=== PATIENT | female | born 1985 ===

== ENCOUNTER 2023-09-06 11:18 | Outpatient (AMB) | payer OTHER, SELFPAY ==
[2023-09-06 11:44] VITALS: BMI 40.8
--- NOTE | 2023-09-06 11:44 | A.OFFVIS_ITS ---
VS Expanded 09/06/23 11:44 09/19/23 12:51 Height 5 ft 2 in 5 ft 2 in Weight 223 lb 1.725 oz 223 lb BMI 40.8 40.8 Intake Visit Reasons: MORBID OBESITY/CONFIRMED Nutrition Presentation Details: Pt presents for MNT for obesity. Pt was referred by PCP Elisabeth Haile [employer]PER[employer]/Dr. Lowe Pt reports having difficulties with meal planning and recently dx with vit d deficiency Typical meal intake B: skips or has granola bars , hydration beverage L: granola bars, water or hydration beverages D: varies sand/chips/fruit or fast food physical activity: daily life activities etoh/smoking----- past med hx of gestational diabetes BS Monitoring Most Recent Diabetes Results: No Data to Display [id number] Equation Height: 5 ft 2 in Weight: 223 lb Resting Metabolic Rate: 1646.79 Calculated Activity Level: Sedentary Calories Needed to Maintain Weight: 1976.15 Diagnosis Nutrition problem #1: food nutri know defi As related to (etiology) #1: diagnosis As evidenced by (sign/symptom) #1: knowledge deficit of diet Monitoring/Goals Nutrition problem monitoring: level of knowledge/skill, total CHO intake, weight and oral fluids Outcome progress: verbalized understanding Learning/Education Readiness to learn: good Assessment & Plan Assessment & Plan (1) Morbid obesity with BMI of 40.0-44.9, adult: Code(s): E66.01 - Morbid (severe) obesity due to excess calories; Z68.41 - Body mass index [BMI] 40.0-44.9, adult Category: Medical Plan: Wt: 101 Kg ( 09/26 ) Est kcal needs as per MSJ: 2000 (40% carb, 30% protein/fat) Est fluid needs as per 25-30 ml/d: 3000 Est prot per day as per 1 g/kg bw: 100 Recommend fiber intake : 8-10 g per day and gradually increase to 25-28 g per day for women and 35-38 g for men or as tolerated Recommend sodium intake per day : less than 1500 mg less than 2000 mg Educated patient on: ( R = reviewed V = verbalizes understanding N/R = needs review N/A = not applicable * Food sources of carbohydrate, adequate serving sizes and its role in various health conditions: R * Differences between complex carbohydrates a simple carbohydrates, role of fiber in diet: R * Lean protein sources of foods: R V NR * Differences between types of fats and role in diet (mono on saturated fat fatty acids, saturated fatty acids, trans fats): R V N/R * Food sources of sodium in salt and healthy modifications for heart health in kidney health: R V R/V * Vitamins and minerals: R V N/R * Healthy plate method concept: R * Physical activity: Benefits a precaution: R V N/R Plan Patient Instructions: Work on following healthy plate method, reducing total carbs to 60 g at meal , 3 meals/day and 0-20 g carbs 2-3 snacks per day Keep hydrated by having water with meals, snacks Coding Level of Care Code Nutr Indiv Intake (53171) Diagnoses Morbid obesity with BMI of 40.0-44.9, adult E66.01; Z68.41 Time Spent (min) 30
[2023-09-19 12:51] VITALS: BMI 40.8
== END 2023-09-06 12:18 | disposition home or self-care (01) ==
PROVIDERS: Visit Provider Dietitian, Registered
DX: E66.01 Morbid (severe) obesity due to excess calories (principal); Z68.41 Body mass index [BMI] 40.0-44.9, adult

== ENCOUNTER → 2023-09-06 11:18 | Outpatient (BNVA) | payer OTHER, SELFPAY | PROVIDERS: Visit Provider Dietitian, Registered | DX: E66.01 Morbid (severe) obesity due to excess calories (principal); Z71.3 Dietary counseling and surveillance; Z68.41 Body mass index [BMI] 40.0-44.9, adult | CPT/HCPCS: 97802 ==

== ENCOUNTER 2023-10-11 10:03 | Outpatient (AMB) | payer OTHER, SELFPAY ==
--- NOTE | 2023-10-11 10:07 | A.OFFVIS_ITS ---
VS Expanded 10/11/23 10:20 Height 5 ft 2 in Weight 227 lb 11.8 oz BMI 41.6 Intake Visit Reasons: MORBID OBESITY/LVM Nutrition Presentation Details: Pt presents for MNT f/u for obesity Pt reports doing well, starting to work on meal planning had challenges with outings BS Monitoring Most Recent Diabetes Results: No Data to Display Assessment & Plan Assessment & Plan (1) Morbid obesity with BMI of 40.0-44.9, adult: Code(s): E66.01 - Morbid (severe) obesity due to excess calories; Z68.41 - Body mass index [BMI] 40.0-44.9, adult Category: Medical Plan: Wt: 101 Kg ( 09/26 ), 103 kg (10/27) Est kcal needs as per MSJ: 2000 (40% carb, 30% protein/fat) Est fluid needs as per 25-30 ml/d: 3000 Est prot per day as per 1 g/kg bw: 100 Recommend fiber intake : 8-10 g per day and gradually increase to 25-28 g per day for women and 35-38 g for men or as tolerated Recommend sodium intake per day : less than 1500 mg less than 2000 mg Educated patient on: ( R = reviewed V = verbalizes understanding N/R = needs review N/A = not applicable * Food sources of carbohydrate, adequate serving sizes and its role in various health conditions: R * Differences between complex carbohydrates a simple carbohydrates, role of fiber in diet: R * Lean protein sources of foods: R * Differences between types of fats and role in diet (mono on saturated fat fatty acids, saturated fatty acids, trans fats): R * Food sources of sodium in salt and healthy modifications for heart health in kidney health: R V R/V * Vitamins and minerals: R V N/R * Healthy plate method concept: R * Physical activity: Benefits a precaution: R V N/R Plan Patient Instructions: Continue to follow healthy plate method reducing total carbs to 45 g at meal and 0-20 g as snack 1-2 /day Coding Level of Care Code Nutr Indiv Subseq (38774) Diagnoses Morbid obesity with BMI of 40.0-44.9, adult E66.01; Z68.41 Time Spent (min) 30
[2023-10-11 10:20] VITALS: BMI 41.6
== END 2023-10-11 10:32 | disposition home or self-care (01) ==
PROVIDERS: Visit Provider Dietitian, Registered
DX: E66.01 Morbid (severe) obesity due to excess calories (principal); Z68.41 Body mass index [BMI] 40.0-44.9, adult

== ENCOUNTER → 2023-10-11 10:03 | Outpatient (BNVA) | payer OTHER, SELFPAY | PROVIDERS: Visit Provider Dietitian, Registered | DX: E66.01 Morbid (severe) obesity due to excess calories (principal); Z68.41 Body mass index [BMI] 40.0-44.9, adult | CPT/HCPCS: 97803 ==

== ENCOUNTER 2023-12-05 11:54 | Outpatient (REF) | payer OTHER, SELFPAY ==
[2023-12-08 22:14] LABS: Aldolase 4.1 U/L (<=8.1)
== END 2023-12-05 11:55 | disposition home or self-care (01) ==
LOC: HO.LAB 11:54
PROVIDERS: Visit Provider Psychiatry & Neurology Neurology
DX: G71.12 Myotonia congenita (principal)
CPT/HCPCS: 36415; 82085; 82550